=== PATIENT | male | born 1980 | race African-American/Black ===

== ENCOUNTER 2017-09-09 13:27 | Emergency (ER) | payer SELFPAY ==
[~2017-09-09] VITALS: Ht 177.8 cm; Wt 74.8 kg
[2017-09-09 13:37] VITALS: BP 125/83
--- NOTE | 2017-09-09 14:03 | NUR ---
suture removal set up in triage.
[2017-09-09] MEDS ORDERED: CEFTRIAXONE 500 MG VIAL ONE (14:38)
[2017-09-09] MEDS ORDERED: AZITHROMYCIN 250 MG TABLET ONE (14:39)
[2017-09-09] MEDS ORDERED: LIDOCAINE /MPF 1% VIAL 5 ML VIAL ONE (14:39)
[2017-09-09] MEDS ORDERED: AZITHROMYCIN 250 MG TABLET PO ONE (15:00)
[2017-09-09] MEDS ORDERED: CEFTRIAXONE 500 MG VIAL IM ONE (15:00)
[2017-09-09 16:03] LABS: APPEARANCE,URINE Clear (CLEAR); BILIRUBIN,URINE Negative (NEGATIVE); BLOOD, URINE Negative Ery/uL (NEGATIVE); COLOR,URINE Yellow (YELLOW); KETONES,URINE Negative (NEGATIVE); LEUKOCYTE ESTERASE ,URINE Negative (NEGATIVE); NITRITE, URINE Negative (NEGATIVE); PROTEIN,URINE Negative (NEGATIVE); UGLUCOSE Negative (NEGATIVE)
[2017-09-09 16:15] LABS: BACTERIA,URINE None seen /HPF (None Seen); RBC,URINE 0-2 /HPF (0-2); SQUAMOUS EPITHELIAL CELL,UR Few /HPF (None Seen)
== END 2017-09-09 14:56 | disposition home or self-care (01) ==
LOC: ER 13:33
DX: Z48.02 Encounter for removal of sutures (principal); Z20.2 Contact with and (suspected) exposure to infections with a predominantly sexual mode of transmission
CPT/HCPCS: 81000-TC; 87491; 87591; A4606; A6402; J0696; J3490; Z7610